=== PATIENT | female | born 1960 | race Caucasian/White ===

== ENCOUNTER 2022-07-21 13:30 | Outpatient (CLI) | payer OTHER | END 2022-07-21 13:40 | disposition home or self-care (01) | LOC: RAD 13:30 | PROVIDERS: ATTEND Orthopaedic Surgery | DX: M79.642 Pain in left hand (principal) ==

== ENCOUNTER 2023-04-03 13:43 | Emergency (ER) | payer OTHER ==
[~2023-04-03] VITALS: Ht 149.9 cm; Wt 68.5 kg
[2023-04-03] MEDS ORDERED: NORVASC2.5 MG (15:29)
[2023-04-03] MEDS ORDERED: TOPROL XL25 M1 (15:30)
[2023-04-03] MEDS ORDERED: RAMIPRIL5 MG (15:30)
[2023-04-03] MEDS ORDERED: FAMOTIDINE40 MG (15:30)
[2023-04-03] MEDS ORDERED: ROSUVASTATIN CAL5 MG (15:30)
[2023-04-03 18:22] LABS: HEMATOCRIT 40.9 % (36.0-45.00); MEAN CELL VOLUME 89.1 fL (80.00-100.00); MEAN CORPUSCULAR HEMOGLOBIN 30.6 pg (27.00-32.0); MEAN CORPUSCULAR HGB CONC 34.3 g/dl (32.0-36.0); PLATELET COUNT 232 K/uL (150-450); RED BLOOD COUNT 4.59 M/uL (4.00-6.00); RED CELL DISTRIBUTION WIDTH 12.8 % (11.5-14.5)
[2023-04-03 18:35] LABS: INR 0.97; PARTIAL THROMBOPLASTIN TIME 28.5 SECONDS (22.0-34.0); PROTHROMBIN TIME 10.2 SECONDS (9.0-11.5)
[2023-04-03 18:40] LABS: CALCIUM 9.9 mg/dL (8.5-10.1); CREATININE SERUM 0.69 mg/dL (0.55-1.02); GFR 85.65; POTASSIUM 4.49 mEq/L (3.5-5.1)
== END 2023-04-03 20:24 | disposition home or self-care (01) ==
LOC: ER 13:44
PROVIDERS: General Practice
DX: H61.20 Impacted cerumen, unspecified ear (principal); R42 Dizziness and giddiness; Z91.018 Allergy to other foods

== ENCOUNTER 2023-04-07 15:55 | Emergency (ER) | payer OTHER ==
[~2023-04-07] VITALS: Ht 149.9 cm; Wt 68.9 kg
[~2023-04-07 15:55] MED LIST: FAMOTIDINE40 MG; NORVASC2.5 MG; RAMIPRIL5 MG; ROSUVASTATIN CAL5 MG; TOPROL XL25 M1
[2023-04-07] MEDS ORDERED: HYDROCHLOROTHIA25 MG PO (16:13)
== END 2023-04-07 18:49 | disposition home or self-care (01) ==
LOC: ER 15:55
DX: R20.2 Paresthesia of skin (principal); I10 Essential (primary) hypertension; Z91.018 Allergy to other foods

== ENCOUNTER 2023-05-26 15:10 | Outpatient (CLI) | payer OTHER ==
[~2023-05-26 15:10] MED LIST changes: +HYDROCHLOROTHIA25 MG PO
[2023-05-26 16:04] LABS: CREATININE SERUM 0.57 mg/dL (0.55-1.02); GFR 106.78
== END 2023-05-26 15:11 | disposition home or self-care (01) ==
LOC: LAB 15:10
PROVIDERS: ATTEND Radiology Diagnostic Radiology
DX: F45.8 Other somatoform disorders (principal)

== ENCOUNTER 2023-06-07 08:58 | Outpatient (CLI) | payer OTHER | END 2023-06-07 09:05 | disposition home or self-care (01) | LOC: MRI 08:58 | PROVIDERS: ATTEND Neuromusculoskeletal Medicine & OMM | DX: G45.8 Other transient cerebral ischemic attacks and related syndromes (principal); I16.9 Hypertensive crisis, unspecified; I72.9 Aneurysm of unspecified site; I65.1 Occlusion and stenosis of basilar artery; I65.09 Occlusion and stenosis of unspecified vertebral artery; I65.29 Occlusion and stenosis of unspecified carotid artery; Q28.2 Arteriovenous malformation of cerebral vessels | CPT/HCPCS: 70544; 70553 ==